=== PATIENT | female | born 1975 | race Caucasian/White ===

== ENCOUNTER 2017-11-14 12:07 | Outpatient (CLI) | payer MEDICAID | END 2017-11-14 12:08 | disposition home or self-care (01) | LOC: BICMAMMO 12:07 | PROVIDERS: ATTEND Advanced Practice Midwife | DX: Z12.31 Encounter for screening mammogram for malignant neoplasm of breast (principal); Z80.3 Family history of malignant neoplasm of breast | CPT/HCPCS: 77067 ==

== ENCOUNTER 2018-03-21 12:04 | Emergency (ER) | payer MEDICAID, SELFPAY ==
[2018-03-21] MEDS ORDERED: Sulfameth/Trimethoprim DS 800-160mg TAB ONE (13:12)
== END 2018-03-21 13:35 | disposition home or self-care (01) ==
LOC: ERS 12:04
DX: L03.114 Cellulitis of left upper limb (principal); I10 Essential (primary) hypertension
CPT/HCPCS: 99283